=== PATIENT | male | born 1950 | race Caucasian/White ===

== ENCOUNTER → 2016-05-12 | Outpatient (CLI) | payer OTHER, MEDICARE ==
--- NOTE | 2016-05-12 16:58 | US ---
Ultrasound Venous Duplex Doppler - Bilateral Legs at 1616 hours History: Trauma. Pain and swelling. R60.9-EDEMA, L03.90-CELLULITIS, Findings: Ultrasound venous Duplex and Doppler imaging of the bilateral common femoral veins, femoral veins, popliteal veins, calf veins, and greater saphenous vein origins demonstrates normal compressi bility, Duplex color-flow, Doppler flow without deep venous thrombosis. Impression: No deep venous thrombosis bilateral legs.
== END ==
LOC: FIMAGING 16:02
PROVIDERS: ATTEND Internal Medicine
DX: R60.9 Edema, unspecified (principal); L03.90 Cellulitis, unspecified

== ENCOUNTER → 2016-07-16 | Outpatient (CLI) | payer OTHER, MEDICARE | LOC: GIMAGING 13:29 | PROVIDERS: ATTEND Internal Medicine | DX: R59.1 Generalized enlarged lymph nodes (principal) | CPT/HCPCS: 71020-PO ==

== ENCOUNTER → 2016-10-17 | Outpatient (CLI) | payer OTHER, MEDICARE | LOC: FIMAGING 09:01 | PROVIDERS: ATTEND Internal Medicine | DX: R10.9 Unspecified abdominal pain (principal); R31.9 Hematuria, unspecified ==

== ENCOUNTER → 2018-06-23 | Outpatient (CLI) | payer OTHER, MEDICARE | LOC: CIMAGING 08:36 | PROVIDERS: ATTEND Surgery | DX: K80.20 Calculus of gallbladder without cholecystitis without obstruction (principal); K76.0 Fatty (change of) liver, not elsewhere classified | CPT/HCPCS: 76700-PO ==

== ENCOUNTER 2018-07-05 06:42 | Day surgery (SDC) | payer OTHER, MEDICARE ==
[2018-07-05] MEDS ORDERED: LR 1,000 ML IV ONE (06:50)
[2018-07-05] MEDS ORDERED: ceFAZolin 2 GM/DEXTROSE 100 ML IV ONE (06:51)
[2018-07-05] MEDS ORDERED: BUPIVACAINE/EPI 0.25% 30 ML SDV ONE (07:06)
[2018-07-05] MEDS ORDERED: IOPAMIDOL (ISOVUE-M 300) 15 ML VIAL ONE (07:06)
--- NOTE | 2018-07-05 07:32 | PDHPUP ---
History & Physical Update H&P update statement: This history and physical update is based on an assessment of the patient which was completed after admission or registration (within 24 hours), but prior to the surgery/procedure. H&P update: H&P reviewed & patient examined, no change in patient's condition since H&P completed
[2018-07-05] MEDS ORDERED: MIDAZOLAM 2 MG/2 ML VIAL ONE (08:05)
[2018-07-05] MEDS ORDERED: MIDAZOLAM 2 MG/2 ML VIAL IVP ONE (08:06)
[2018-07-05] MEDS ORDERED: DEXAMETHASONE 4 MG/ML VIAL IVP PRN (08:08)
[2018-07-05] MEDS ORDERED: ONDANSETRON 4 MG/2 ML VIAL IVP PRN (08:08)
[2018-07-05] MEDS ORDERED: PROMETHAZINE HCL 25 MG/ML INJ IVP PRN (08:08)
[2018-07-05] MEDS ORDERED: ACETAMINOPHEN 500 MG TAB PO PRN (08:08)
[2018-07-05] MEDS ORDERED: MEPERIDINE 25 MG/0.5 ML AMP IVP PRN (08:08)
[2018-07-05] MEDS ORDERED: NALOXONE HCL 0.4 MG/ML INJ IVP PRN (08:08)
[2018-07-05] MEDS ORDERED: LR 500 ML IV PRN (08:08)
--- NOTE | 2018-07-05 08:08 | PDANEPAE ---
ANE Past Medical History - Cardiovascular History Hx Hypertension: No Hx Arrhythmias: No Hx Chest Pain: No Hx Coronary Artery / Peripheral Vascular Disease: No Hx CHF / Valvular Disease: No Hx Palpitations: No Cardiovascular History Comment: PFO MINISCAL - Pulmonary History Hx COPD: No Hx Asthma/Reactive Airway Disease: Yes Hx Recent Upper Respiratory Infection: No Hx Oxygen in Use at Home: No Hx Sleep Apnea: No Sleep Apnea Screening Result - Last Documented: Negative Pulmonary History Comment: DENIES SOB W STAIRS - Neurologic History Hx Cerebrovascular Accident: No Hx Seizures: No Hx Dementia: No - Endocrine History Hx Diabetes: No Obesity: no - Renal History Hx Renal Disorders: No Renal History Comment: INCONT. - Liver History Hx Hepatic Disorders: No - Neurological & Psychiatric Hx Hx Neurological and Psychiatric Disorders: No - Cancer History Hx Cancer: Yes Cancer History Comment: PROSTATE CA - Congenital Disorder History Hx Congenital Disorders: No - GI History GERD: no Hx Gastrointestinal Disorders: No - Other Health History Other Health History: RIGHT REAR LOWER MOLAR - Chronic Pain History Chronic Pain: No - Surgical History Prior Surgeries: RAD PROSTATECTOMY 2010. CARLOS HERNIA . KIDNEY STONES . TONSILS . JAW WIRED . 2013 urethral cuff ANE Review of Systems Review of Systems: - Exercise capacity METS (RN): 6 METS ANE Patient History - Allergies Allergies/Adverse Reactions: atorvastatin calcium [From Lipitor] Allergy (Severe, Verified 07/02/18 09:34) MUSCLE ACHES lovastatin Allergy (Intermediate, Verified 07/02/18 09:34) MUSCLE SPASMS oxycodone Allergy (Intermediate, Verified 07/02/18 09:34) Vomiting hydrocodone Allergy (Verified 07/05/18 07:09) Itching - Home Medications Home medications: home medication list seen and reviewed Home Medications: NK [No Known Home Meds] 02/01/16 [Last Taken Unknown] - NPO status NPO Status: no food or drink >8 hours NPO Since - Liquids (Date): 07/04/18 NPO Since - Liquids (Time): 20:30 NPO Since - Solids (Date): 07/04/18 NPO Since - Solids (Time): 20:30 - Anes Hx Anes Hx: no prior problems - Smoking Hx Smoking Status: Never smoked - Family Anes Hx Family Hx Anesthesia Complications: NONE ANE Labs/Vital Signs - Vital Signs Blood Pressure: 139/76 Heart Rate: 69 Respiratory Rate: 15 O2 Sat (%): 97 Height: 187.96 cm Weight: 88.451 kg ANE Physical Exam - Airway Neck exam: FROM Mallampati Score: Class 2 Mouth exam: normal dental/mouth exam - Pulmonary Pulmonary: no respiratory distress, no rales or rhonchi, clear to auscultation - Cardiovascular Cardiovascular: regular rate and rhythym, no murmur, rub, or gallop - ASA Status ASA Status: II ANE Anesthesia Plan Anesthesia Plan: general endotracheal anesthesia
[2018-07-05] MEDS ORDERED: fentaNYL 100 MCG/2 ML INJ ONE ×2 (08:16→09:34)
[2018-07-05] MEDS ORDERED: PROPOFOL 200 MG/20 ML VIAL ONE (08:16)
[2018-07-05] MEDS ORDERED: LIDOCAINE 2% 2 ML INJ ONE (08:18)
[2018-07-05] MEDS ORDERED: ONDANSETRON 4 MG/2 ML VIAL ONE (08:18)
[2018-07-05] MEDS ORDERED: ROCURONIUM 50 MG/5 ML VIAL ONE (08:18)
[2018-07-05] MEDS ORDERED: DEXAMETHASONE 4 MG/ML VIAL ONE ×2 (08:19)
[2018-07-05] MEDS ORDERED: KETOROLAC 30 MG/1 ML SDV ONE (08:30)
[2018-07-05] MEDS ORDERED: PHENYLEPHRINE HCL 100 MCG/ML SYR ONE (08:42)
[2018-07-05] MEDS ORDERED: GLYCOPYRROLATE 0.2 MG/1 ML VIAL ONE (09:03)
[2018-07-05] MEDS ORDERED: NEOSTIGMINE METHYLSULFATE 5 MG/5 ML SYR ONE (09:03)
[2018-07-05] MEDS ORDERED: HYDROmorphONE/DILAUDID 2 MG TAB PO PRN (09:26)
--- NOTE | 2018-07-05 09:26 | POSTANESTH ---
Post Anesthetic Evaluation Cardiovascular Status: Normal, Stable, Similar to Pre-Op Cond Respiratory Status: Normal, Stable, Similar to Pre-op Cond. Level of Consciousness/Mental Status: Can Participate in Eval, Moderately Sleepy Pain Control: Adequate, Prn Tx Ordered Nausea/Vomiting Control: Adequate, Prn Tx Ordered Complications Possibly Related to Anesthesia: None Noted
--- NOTE | 2018-07-05 09:26 | POSTOPPROG ---
Post Op Note Date of Operation: 07/05/18 Surgeon: Azam Diaz Anesthesiologist: Taya Anesthesia: GET(General Endotracheal) Pre-op Diagnosis: Biliary colic Post-op Diagnosis: chronic cholecystitis Procedure: Laparoscopic cholecystectomy Findings: critical view, adhesions Inf/Abcess present in the surg proc area at time of surgery?: No EBL: Minimal Specimen(s): GB
[2018-07-05] MEDS: fentaNYL 100 MCG/2 ML INJ IVP PRN ×2 (09:36→09:47)
[2018-07-05 11:59] VITALS: BP 120/73
--- NOTE | 2018-07-05 14:13 | GOP ---
[f rep st] OPERATIVE REPORT DATE OF OPERATION: 07/05/2018 SURGEON: Azam Diaz MD INSEAMER: None. ANESTHESIA: General endotracheal ANESTHESIOLOGIST: Dr. Ruiz Bain. PREOPERATIVE DIAGNOSIS: Biliary colic. POSTOPERATIVE DIAGNOSIS: Chronic cholecystitis. PROCEDURE PERFORMED: Laparoscopic cholecystectomy. FINDINGS: Edematous gallbladder wall with multiple omental adhesions. Critical view obtained. SPECIMENS: Gallbladder. ESTIMATED BLOOD LOSS: 5 mL. DESCRIPTION OF PROCEDURE: The patient was greeted in the preoperative suite. Once again, risks, kimberly efits and alternatives were discussed. Consent was signed. He was then brought back to the operativ e suite and placed on the OR table in supine position. After all anesthesia machines were on and fun ctioning, [employer] time-out was performed. After successful induction of general an esthesia, the patient's abdomen was prepped and draped in typical sterile fashion. I commenced the p rocedure by making an infraumbilical cutdown, through which the Veress needle was passed. I achieved pneumoperitoneum to 15 mmHg CO2, which was well tolerated by the patient. Once successfully insuffl ated, I used a 12 mm Visiport and successfully entered the abdomen. I placed 3 additional 5 mm troca rs, 1 in the subxiphoid, 2 in the right upper quadrant, all under direct visualization. I identified the gallbladder and retracted it over the liver edge. There were some omental adhesions which were taken down with a combination of blunt and sharp dissection. I turned my attention toward the infund ibulum. I dissected out 2 and only 2 structures leading toward the critical view. I successfully fi rst clipped the artery and divided it in the same fashion of the cystic duct. I then took the gallbl adder off the liver bed using electrocautery. It was placed in an EndoCatch bag and removed. I then irrigated the right upper quadrant with a liter of sterile saline, noting clear effluent in the suct ion canister. My clips were inspected and noted to be intact and hemostatic. I then infiltrated all port sites with local anesthesia. The infraumbilical site was closed with an 0 Vicryl stitch, notin g excellent fascial reapproximation. The skin was closed with Monocryl. Dermabond was placed. The patient was then extubated in the operative suite and taken to the PACU in satisfactory condition. DRAINS: None. COUNTS: All counts were reported as correct x2. /[id number]/MODL
== END 2018-07-05 12:00 | disposition home or self-care (01) ==
LOC: FSGY 06:42
PROVIDERS: ATTEND Surgery
PROC: 0FT44ZZ Resection of Gallbladder, Percutaneous Endoscopic Approach (ICD-10-PCS; principal; 2018-07-05 08:15)
DX: K80.10 Calculus of gallbladder with chronic cholecystitis without obstruction (principal); E78.5 Hyperlipidemia, unspecified; I47.1 Supraventricular tachycardia; Z85.46 Personal history of malignant neoplasm of prostate
CPT/HCPCS: J0690; J1100; J1885; J2250; J2370; J2405; J2704; J2710; J3010; Q9967